=== PATIENT | male | born 1985 | race Caucasian/White ===

== ENCOUNTER 2024-06-18 04:31 | Emergency (ER) | payer OTHER, SELFPAY ==
[2024-06-18 04:31] VITALS: BP 118/66; PULSE 91; RESP 20; TEMP 36.1; O2SAT 99; BMI 19.1
--- NOTE | 2024-06-18 05:18 | RAD_ITS ---
EXAM: XR CHEST, 2 VIEWS CLINICAL INDICATION: chest pain TECHNIQUE: Frontal and lateral views of the chest. COMPARISON: No relevant prior studies available. FINDINGS: LUNGS AND PLEURAL SPACES: Unremarkable. No consolidation or edema. No pneumothorax. No effusion. HEART: Unremarkable. Cardiac silhouette not enlarged. MEDIASTINUM: Central airways and mediastinal contour are unremarkable. BONES/JOINTS: Unremarkable. No acute fracture. SOFT TISSUES: Unremarkable. RAD/Chest PA and Lateral IMPRESSION: No radiographic evidence of acute cardiopulmonary disease. Electronically Signed: Indra Rodriguez MD at 6:28 EDT ,
--- NOTE | 2024-06-18 05:18 | EKG12_ITS ---
Test Reason : CP Blood Pressure : / mmHG Vent. Rate : 103 BPM Atrial Rate : 103 BPM P-R Int : 136 ms QRS Dur : 080 ms QT Int : 368 ms P-R-T Axes : 067 074 049 degrees QTc Int : 482 ms Sinus tachycardia Otherwise normal ECG Confirmed by Indra Alvares ([id number]), multimedia editor TONIE ZENG ([id number]) on 06/19/2024 6:45:50 AM Referred By: Confirmed By:Indra Alvares
[2024-06-18 05:31] VITALS: BP 100/70; PULSE 69; RESP 19; O2SAT 98
[2024-06-18 05:47] LABS: Absolute Lymphocyte Count 2.42 X10^3/uL (0.83-4.51); Absolute Neutrophil Count 3.1 X10^3/uL (2.0-7.7); Basophil# 0.01 X10^3/uL; Basophil% 0.2 % (0-1); Eosinophil# 0.31 X10^3/uL; Eosinophils% 4.9 % (0-5); Hematocrit 42.3 % (40-54); Hemoglobin 14.5 g/dL (13.0-16.5); Lymphocyte # 2.42 X10^3/ul (0.83-4.51); Lymphocyte % 38.1 % (19-41); Mean Corp Hgb Conc 34.3 g/dL (32-36); Mean Corpuscular Hgb 30.8 pg (27.0-32.0); Mean Corpuscular Volume 89.8 fL (80-94); Mean Platelet Vol. 9.7 fl (6.2-12.0); Monocyte# 0.54 X10^3/uL; Monocyte% 8.5 % (0-10); NRBC Flagged by Analyzer 0 % (0-5); Neutrophil # 3.06 X10^3/uL (2.7-7.7); Platelet Count 261 K/mm3 (150-450); RBC Distribution Width CV 12.8 % (11.6-14.6); RBC Distribution Width SD 42.1 fl (35.1-43.9); Red Blood Count 4.71 M/mm3 (4.6-6.2); White Blood Count 6.4 K/mm3 (4.4-11.0)
--- NOTE | 2024-06-18 05:47 | EDS_ITS ---
HPI History of Present Illness Chief Complaint: Chest Pain Informant: patient Narrative Narrative: Patient is a 38-year-old male with past medical history of anxiety and depression as well as tobacco use. He reports that he developed chest pain described as a pressure in his mid sternum that began yesterday and has been constant. He states there is no associated nausea vomiting diaphoresis shortness of breath with the chest discomfort. He reports he has not been taking his anxiety medications. He denies any illicit drug use. He denies any recent travel surgery or history of DVT/PE. He states his mother did have a heart attack at a young age of 45 and he is scared that he may be having a cardiac event as well and therefore comes in for evaluation. [facility] Medical History Depression Anxiety Home Medications ?Medication ?Instructions ?Recorded ?Last Taken ?Type buspirone 7.5 mg tablet 7.5 mg PO BID PRN anxiety 30 days 06/18/24 Unknown Rx #60 tabs Allergy/AdvReac Type Severity Reaction Status Date / Time ibuprofen AdvReac Nausea/Vom/ Verified 06/18/24 04:34 Diarrhea Social History Smoking Status: Current every day smoker tobacco type: cigarettes ROS ROS ED Constitutional Constitutional ED: Denies chills or fever(s) Eyes Eyes: Denies change in vision ENT ENT ED: Denies sore throat Cardiovascular Cardiovascular: Reports chest pain; Denies palpitations or racing heartbeat Respiratory/Chest Respiratory/Chest: Denies cough or dyspnea Gastrointestinal Gastrointestinal: Denies abdominal pain, diarrhea, nausea or vomiting Genitourinary Genitourinary ED: Denies dysuria Musculoskeletal Musculoskeletal: Denies myalgias Integumentary Denies rash Neurologic Neurologic: Denies headache(s) Psychiatric Psychiatric: Reports anxiety Hematologic/Lymphatic Hematologic/Lymphatic: Denies easy bleeding or easy bruising EXAM Physical Exam Const Vital Signs: 06/18/24 04:31 06/18/24 05:31 06/18/24 06:00 Temperature 97 F L Temperature Source Oral Pulse Rate 91 69 57 L Respiratory Rate 20 H 19 H 18 Blood Pressure 118/66 100/70 89/63 L Blood Pressure Mean 83 80 71 Pulse Ox 99 98 96 Positive well nourished and well developed General Appearance ED: well developed; Negative for pallor HEENT HEENT Narrative: Normocephalic atraumatic Eyes PERRL and EOMs intact bilaterally General Eye ED: Negative for scleral icterus Neck supple Neck Narrative: No nuchal rigidity or meningeal signs Chest Wall palpation of chest normal Chest Narrative: No bony deformity or crepitance Resp Resp Narrative: Patient is tachypneic with diffuse rhonchi consistent with history of smoking but otherwise no nasal flaring retractions or accessory muscle use Cardio regular rate and regular rhythm Rate: other Other Details: Heart is regular rate and rhythm without murmurs rubs or gallops Radial and carotid pulses are equal and symmetric No carotid bruit noted GI normal to inspection, nondistended, normoactive bowel sounds, non-tender, non-di stended and no masses GI Narrative: No voluntary guarding or rigidity or pulsatile mass Auscultation: normoactive bowel sounds Palpation: soft Extremity normal to inspection Extremity Narrative: No asymmetric edema no pitting edema negative Homans' sign bilaterally Neuro oriented x3, CN's II-XII intact bilaterally and no sensory deficits noted Sensorium / Orientation: alert Motor Exam: strength 5/5 throughout Psych Psych Narrative: Patient has a nervous/anxious affect Mood & Affect: anxious and tearful Skin no rashes or lesions noted General Skin Exam: Negative for jaundice or pallor MDM MDM MDM Narrative Medical decision making narrative: Patient arrived to the ER in no acute distress. He was by exam more anxious but he does have cardiac risk factors and the fact that he smokes and his mother had a heart attack at age 45. With concern for acute coronary syndrome versus cardiac dysrhythmia versus lung pathology such as pneumonia or pneumothorax I did elect to perform basic laboratory studies along with a chest x-ray. EKG revealed no ischemic changes and troponin was 4 going against a cardiac event. He was kept on the cardiac specialist and there is no dysrhythmia noted. Chest x- ray revealed no acute lung pathology. He had no laboratory changes of acute blood loss anemia or acute kidney injury or severe electrolyte abnormality. After receiving Ativan he had resolution of symptoms. Therefore this time as he has a negative cardiac workup and his symptoms resolved with Ativan I feel that his chest discomfort was more driven by anxiety and not acute coronary syndrome and therefore he is otherwise safe for discharge with outpatient follow-up. History & Record Review Discussion w/independent historian: Patient Lab Data Attestation: I reviewed the patient's lab results. Labs: Laboratory Results - last 24 hr 06/18/24 05:30 WBC 6.4 RBC 4.71 Hgb 14.5 Hct 42.3 MCV 89.8 MCH 30.8 MCHC 34.3 RDW Std Deviation 42.1 RDW Coeff of Kim 12.8 Plt Count 261 MPV 9.7 Immature Gran % (Auto) 0.300 Neut % (Auto) 48.0 Lymph % (Auto) 38.1 [place] % (Auto) 8.5 Eos % (Auto) 4.9 Baso % (Auto) 0.2 Absolute Neuts (auto) 3.1 Absolute Lymphs (auto) 2.42 Nucleated RBC % 0 Sodium 138 Potassium 3.3 L Chloride 107 Carbon Dioxide 23.0 Anion Gap 8 BUN 13 Creatinine 0.90 Estim Creat Clear Calc 85.65 Est GFR (MDRD) Af Amer 120 Est GFR (MDRD) Non-Af 100 BUN/Creatinine Ratio 14.5 Glucose 82 Calcium 9.1 Magnesium 1.9 Troponin I High Sens 4 Radiography Diagnostic Testing: Clinical Impression(s) from Imaging Studies Chest X-Ray 06/18/24 05:18 IMPRESSION: No radiographic evidence of acute cardiopulmonary disease. Electronically Signed: Indra Rodriguez MD at 6:28 EDT , Chest x-ray as interpreted by the emergency medicine physician reveals no acute infiltrate pneumothorax pleural effusion or widening of the mediastinum Discharge Plan Triage Chief Complaint: Chest Pain ED Provider: Jarek Lees Dx/Rx/DC Orders Clinical Impression: Nonspecific chest pain, Anxiety, Hypokalemia, Tobacco use Instructions: Anxiety Disorders Tx, ED Chest Pain, Uncertain Cause Prescriptions: New buspirone 7.5 mg tablet 7.5 mg PO BID PRN (Reason: anxiety) 30 Days Qty: 60 0RF Stand Alone Forms: Work / School Excuse Primary Care Provider: Care Physician,No Primary Referrals: John Johnson MD [Med Staff - Active Staff] - NOT,DEFINED [Non-Staff] - Print Language: Swedish Disposition Disposition: Home, Self Care
[2024-06-18 06:00] VITALS: BP 89/63; PULSE 57; RESP 18; O2SAT 96
[2024-06-18] MEDS: LORazepam 2 MG/ML Syringe 1 MG IV (06:05)
[2024-06-18 06:06] LABS: Anion Gap 8 (5-15); BUN 13 mg/dL (7-18); BUN/Creat Ratio 14.5 RATIO (10-20); Calcium,Total 9.1 mg/dL (8.5-10.1); Chloride 107 mmol/L (98-107); EST Glomerular Filtration Rate 100 mL/min (>60); Est Glom Filt Rate - Afr Amer 120 mL/min (>60); Estimated Creatinine Clearance 85.65 ml/min; Glucose 82 mg/dL (74-106); Magnesium 1.9 mg/dL (1.6-2.6); Potassium 3.3 mmol/L (3.5-5.1); Sodium Level 138 mmol/L (136-145); Troponin-I HS 4 pg/mL (3.0-78.0)
[2024-06-18 07:03] VITALS: BP 92/60; PULSE 62; RESP 18; TEMP 36.9; O2SAT 99
== END 2024-06-18 07:03 | disposition home or self-care (01) ==
PROVIDERS: Emergency Provider Emergency Medicine; Visit Provider Emergency Medicine
DX: R07.89 Other chest pain (principal); F41.9 Anxiety disorder, unspecified; E87.6 Hypokalemia; F17.210 Nicotine dependence, cigarettes, uncomplicated; Z82.49 Family history of ischemic heart disease and other diseases of the circulatory system
CPT/HCPCS: 71046; 80048; 83735; 84484; 85025; 93005; 96374; 99283; A4216

== ENCOUNTER 2024-12-02 14:57 | Emergency (ER) | payer MEDICAID, SELFPAY ==
[2024-12-02 14:58] VITALS: BP 125/84; PULSE 92; RESP 18; TEMP 36.4; O2SAT 98; BMI 19.6
--- NOTE | 2024-12-02 15:54 | EDS_ITS ---
HPI History of Present Illness Chief Complaint: Headache Narrative Narrative: 39-year-old male presents with 6 days of right-sided headache that was gradual onset but is getting worse. He currently rates it a 10 out of 10. He describes it as both dull and achy and sharp and stabbing with throbbing. He endorses photophobia and mild phonophobia. He states that his right eye tears up as well. No exacerbating or alleviating factors. He is unable to take ibuprofen, but Tylenol is not helping. He denies any paresthesias of his arms or legs but states that he has pain on the right side of his head mainly in the frontal parietal area and it radiates down to behind his eye on the right side. No nausea or vomiting. No exacerbating or alleviating factors. He states that over the last few days there are times when he can wake up in the morning and he does not have a headache, but then throughout the day and returns. He denies history of migraine headache, no family history of aneurysms/cerebral aneurysm. He has had headaches previously that he considers [id number] that usually are relieved with Tylenol. He states that this particular headache sentiment to a panic attack yesterday. [facility] Medical History Depression Anxiety Home Medications ?Medication ?Instructions ?Recorded ?Last Taken ?Type buspirone 7.5 mg tablet 7.5 mg PO BID PRN anxiety 30 days 06/18/24 Unknown Rx #60 tabs Allergy/AdvReac Type Severity Reaction Status Date / Time ibuprofen AdvReac Nausea/Vom/ Verified 12/02/24 14:57 Diarrhea Social History Smoking Status: Current every day smoker tobacco type: cigarettes ROS ROS ED ROS Narrative Constitutional: No fever, no chills. HEENT: No neck pain. No loss of vision. Positive right eye tearing Cardiovascular: No chest pain. No palpitations. No pedal edema. Respiratory: No cough, no shortness of breath. Abdominal: No abdominal pain. No nausea. No vomiting. Genitourinary: No dysuria. No hematuria. Musculoskeletal: No myalgias. No arthralgias. Neurologic: Right sided headaches. No dizziness. No lightheadedness. Positive photophobia with mild phonophobia. Rates headache 10 out of 10. Skin: No rash. No change in color. Psychiatric: No depression. Positive panic attacks/anxiety yesterday. EXAM Physical Exam Narrative Exam Narrative: Afebrile. Vital signs noted. Nontoxic-appearing. HEENT examination shows PERRL, EOMI. Neck soft and supple without meningismus. Cardiovascular examination reveals a regular rate and rhythm. Lungs are clear to auscultation bilaterally. Abdomen is soft and nontender with normal active bowel sounds, no guarding or rebound. Neurological examination is nonfocal, nonlateralizing. Patellar DTRs equal and symmetric. Const Vital Signs: 12/02/24 14:58 12/02/24 15:58 12/02/24 16:01 Temperature 97.5 F L Temperature Source Oral Pulse Rate 92 79 Respiratory Rate 18 18 Blood Pressure 125/84 H 102/73 Blood Pressure Mean 97 82 Pulse Ox 98 100 Oxygen Delivery Method Room Air Nasal Cannula Nasal Cannula Oxygen Flow Rate (L/min) 2 2 12/02/24 18:00 Temperature Temperature Source Pulse Rate 80 Respiratory Rate 18 Blood Pressure 103/72 Blood Pressure Mean 82 Pulse Ox 96 Oxygen Delivery Method Room Air Oxygen Flow Rate (L/min) MDM MDM MDM Narrative Medical decision making narrative: Differential diagnosis includes but not limited to cluster type headaches versus migraine headache versus intracranial mass versus intracranial hemorrhage. I have low suspicion for the latter 2 diagnoses based on the timeframe and the patient's physical exam as he has periods of waking up without a headache. As he has not really had a migraine history in the past, I do feel CT imaging is indicated. He will be bolused normal saline and administered diphenhydramine as well as prochlorperazine intravenously and attempt to lessen his headache. He was told that as it has been 6 days, it may be difficult to completely eradicate his headache. Repeat examination at approximately 1700 does show that he states he is only had slight improvement of his headache. He will be given a subcutaneous injection of Imitrex. I reviewed the radiology report of the CT of the brain and there is no acute process, no hemorrhage. I do not feel that he requires any further testing or imaging. Upon repeat examination at approximately 1810, patient states that his headache is almost completely gone. He feels significantly improved. Hence, I feel this is probably more of a classical migraine. They discussed with social work follow-up primary care providers. I feel he can be discharged to follow-up. Return instructions were reviewed. Disposition is discharged home in stable condition. History & Record Review Discussion w/independent historian: Patient and Significant other Radiography Diagnostic Testing: Clinical Impression(s) from Imaging Studies Brain CT 12/02/24 16:25 IMPRESSION: Unremarkable CT head. Reading Location: [facility] Discharge Plan Triage Chief Complaint: Headache ED Provider: Antonio Hagen Dx/Rx/DC Orders Clinical Impression: Headache, Migraine Instructions: Understanding Headache Pain, ED, Migraine (Classical) Prescriptions: No Action buspirone 7.5 mg tablet 7.5 mg PO BID PRN (Reason: anxiety) 30 Days Qty: 60 0RF Primary Care Provider: Care Physician,No Primary Referrals: Care Physician,No Primary [Primary Care Provider] - Activity Restrictions/Additional Instructions: Follow-up with a primary care provider. Return to the emergency department with increased pain, new or worsening symptoms. Print Language: Icelandic Disposition Disposition: Home, Self Care
[2024-12-02] MEDS: proCHLORPERazine 10 MG/2 ML Vial IV (15:55)
[2024-12-02] MEDS: DiphenhydrAMINE 50 MG/ML Syringe 25 MG IV (15:56)
[2024-12-02] MEDS: 0.9% Normal Saline (1000mL) 1,000 ML 999 ML IV (15:57)
[2024-12-02 16:01] VITALS: BP 102/73; PULSE 79; RESP 18; O2SAT 100
--- NOTE | 2024-12-02 16:25 | CT_ITS ---
EXAM: BRAIN/HEAD WITHOUT CONTRAST CLINICAL HISTORY: 39-year-old male, headache, migraine x6 days with no relief. Pain towards the right side of head. COMPARISON: None. TECHNIQUE: Routine CT imaging of the head without IV contrast. Additional multiplanar reformats were obtained. Dose reduction techniques were used including intermediate exposure control (AEC),iterative reconstruction technique, and/or mA and/or KV dose adjustments based on patient's size. FINDINGS: No acute intracranial hemorrhage or mass effect. The jeong-white matter interfaces are maintained. The basal cisterns are patent. No ventriculomegaly. Mild mucosal thickening of the bilateral maxillary sinuses. Opacification of a few bilateral ethmoid air cells. The mastoid air cells are well-aerated. Unremarkable orbits. No calvarial fracture or scalp hematoma. CT/Brain/Head without Contrast IMPRESSION: Unremarkable CT head. Reading Location: [id number]
[2024-12-02] MEDS: SUMAtriptan 6 MG/0.5 ML Vial SC (17:19)
[2024-12-02 18:00] VITALS: BP 103/72; PULSE 80; RESP 18; O2SAT 96
--- NOTE | 2024-12-02 18:29 | CM.ED ---
Social Work Reason for visit; No PCP SW entered room, introduced self and reason for visit. At time of visit, patient was laying in bed with light off and eyes closed. Patients significant other engaged with SW. SO stated that they tried to get patient in a physician where SO goes but the wait was months long. [facility] provider list given, SO thankful for resource. No further needs identified at this time. Nicolasa Green, CHUCK BONER, LICENSING OFFICER
== END 2024-12-02 18:19 | disposition home or self-care (01) ==
PROVIDERS: Emergency Provider Emergency Medicine; Referring Provider Emergency Medicine; Visit Provider Emergency Medicine
DX: G43.909 Migraine, unspecified, not intractable, without status migrainosus (principal); F41.9 Anxiety disorder, unspecified; F17.210 Nicotine dependence, cigarettes, uncomplicated; Z79.899 Other long term (current) drug therapy
CPT/HCPCS: 70450; 96361; 96374; 96375; 99283; J3030